=== PATIENT | male | born 1970 | race Caucasian/White ===

== ENCOUNTER 2021-01-14 14:04 | Emergency (ER) | payer OTHER ==
[~2021-01-14 14:04] MED LIST: ADIPEX-P37.5 MG PO; AUGMENTIN 875-1 EACH PO; CLEOCIN HCL150 MG PO; IBU800 MG PO; MEDROL DOSEPAK 24 MG PO; NASONEX17 GM; NEURONTIN 400400 MG PO; NORFLEX 100 MG100 MG PO; OMEPRAZOLE20 MG PO; PERCOCET 7.5-31 EACH PO; TORADOL 10 MG T10 MG PO
[2021-01-14 15:24] LABS: HEMOGLOBIN 17.7 gm/dl (14.0-17.5); RED BLOOD COUNT 6.19 M/UL (4.20-5.50); WHITE BLOOD COUNT 5.6 K/UL (4.5-11.0)
[2021-01-14 15:48] LABS: BUN/CREATININE RATIO 18 (0-10)
== END 2021-01-14 19:27 | disposition home or self-care (01) ==
LOC: ER1 14:04
PROVIDERS: Physician Assistant
DX: U07.1 COVID-19 (principal); E11.9 Type 2 diabetes mellitus without complications; C73 Malignant neoplasm of thyroid gland
CPT/HCPCS: 71046; 80053; 81001; 82550; 82553; 82962; 83874; 84484; 85025; 93005; 99284; U0002